=== PATIENT | female | born 1980 | race Caucasian/White ===

== ENCOUNTER 2017-05-20 12:07 | Emergency (ER) | payer MEDICAID ==
[~2017-05-20] VITALS: Ht 160 cm; Wt 49.0 kg
[~2017-05-20 12:07] MED LIST: ALBU8.5H8 IH
[2017-05-20] MEDS ORDERED: ibuprofen tablet 400 MG TABLET PO ONE (13:00)
[2017-05-20] MEDS ORDERED: IBUP-1984 PO (13:27)
[2017-05-20] MEDS ORDERED: ACET1TAB12 PO (13:27)
[2017-05-20 13:33] VITALS: BP 113/76
== END 2017-05-20 13:34 | disposition home or self-care (01) ==
LOC: ER 12:09
DX: S20.211A Contusion of right front wall of thorax, initial encounter (principal); J45.909 Unspecified asthma, uncomplicated; G89.29 Other chronic pain; F12.10 Cannabis abuse, uncomplicated; W19.XXXA Unspecified fall, initial encounter; Y93.89 Activity, other specified; Y92.89 Other specified places as the place of occurrence of the external cause; Y99.8 Other external cause status
CPT/HCPCS: 71045; 99283